=== PATIENT | male | born 1975 | race Two or more races ===

== ENCOUNTER 2017-04-07 18:16 | Emergency (ER) | payer BC, OTHER ==
[2017-04-07 18:34] VITALS: BP 120/81
--- NOTE | 2017-04-07 19:19 | RAD ---
INDICATION: Left knee injury. TECHNIQUE: 4 views of the left knee were obtained. FINDINGS: The bones are in normal alignment. 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 There is a small joint effusion present. There is a small crescent-shaped fracture fragment arising from the inferior pole of the patella. No other fractures are seen. Joint spaces appear maintained. IMPRESSION: SMALL JOINT EFFUSION AND SMALL AVULSION FRACTURE FRAGMENT ARISING FROM THE INFERIOR POLE OF THE PATELLA.
--- NOTE | 2017-04-07 20:42 | UC ---
Knee Pain HPI - HPI Summary HPI Summary: IN [facility] THIS HIKING. HAS JUMPING FROM [place] THIS MORNING. PAIN IN LEFT KNEE, UNABLE TO BEAR WEIGHT WITHOUT PAIN. NO PREVIOUS INJURY - History of Current Complaint Chief Complaint: UCLowerExtremity Stated Complaint: KNEE INJURY Time Seen by Provider: 04/07/17 18:33 Hx Obtained From: Patient Onset/Duration: Sudden Onset, Lasting Hours Severity Initially: Severe Severity Currently: Moderate Pain Intensity: 5 Pain Scale Used: 0-10 Numeric Character: Dull, Aching, Stiffness Aggravating Factor(s): Movement, Weight Bearing, Prolonged Standing, Stairs Alleviating Factor(s): Position, Cold Associated Signs And Symptoms: Positive: Swelling Able to Bear Weight: No - Risk Factors Septic Arthritis Risk Factor: Negative Gout Risk Factor: Negative - Allergies/Home Medications Allergies/Adverse Reactions: Allergies Allergy/AdvReac Type Severity Reaction Status Date / Time No Known Allergies Allergy Verified 04/07/17 18:22 Home Medications: Home Medications Ibuprofen TAB* [Advil TAB*] 2 tab PO TID PRN 04/07/17 [History Confirmed ] PMH/Surg Hx/FS Hx/Imm Hx Previously Healthy: Yes - Surgical History Surgical History: Yes Surgery Procedure, Year, and Place: right knee - MEDIAL MEISCAL TEAR A FEW 2009 - Family History Known Family History: Negative: Other - NO JOINT LAXITY - Social History Occupation: Employed Full-time Lives: With Family Alcohol Use: Rare Substance Use Type: None Smoking Status (MU): Never Smoked Tobacco Review of Systems Constitutional: Negative Skin: Negative Eyes: Negative ENT: Negative Respiratory: Negative Cardiovascular: Negative Gastrointestinal: Negative Genitourinary: Negative Motor: Negative Neurovascular: Negative Musculoskeletal: Arthralgia - LEFT KNEE, Myalgia Neurological: Negative Psychological: Negative Is Patient Immunocompromised?: No All Other Systems Reviewed And Are Negative: Yes Physical Exam Triage Information Reviewed: Yes Appearance: Well-Appearing, Well-Nourished, Pain Distress Vital Signs: Initial Vital Signs Temp 98.8 F 04/07/17 18:23 Pulse 72 04/07/17 18:23 Resp 16 04/07/17 18:23 BP 120/81 04/07/17 18:23 Pulse Ox 100 04/07/17 18:23 Vital Signs Reviewed: Yes Eye Exam: Normal ENT Exam: Normal ENT: Positive: Normal ENT inspection Dental Exam: Normal Neck exam: Normal Neck: Positive: Supple, Nontender Respiratory Exam: Normal Respiratory: Positive: Chest non-tender, Lungs clear, Normal breath sounds, No respiratory distress Cardiovascular Exam: Normal Cardiovascular: Positive: RRR, No Murmur, Pulses Normal Abdominal Exam: Normal Musculoskeletal: Positive: Strength Limited @ - LEFT KNEE, ROM Limited @ - LEFT KNEE, Edema @ - LEFT KNEE Neurological Exam: Normal Psychological Exam: Normal Skin Exam: Normal Knee Pain Course/Dx - Differential Dx/Diagnosis Differential Diagnosis/HQI/PQRI: Fracture (Closed), Internal Derangement Of Knee , Sprain, Strain Provider Diagnoses: CLOSED AVULSION FRACTURE INFERIOR POLE LEFT PATELLA Discharge - Discharge Plan Condition: Stable Disposition: HOME Patient Education Materials: Patellar Fracture (ED), Swollen Knee Joint (ED), Avulsion Fracture (ED) Referrals: Say Melgar MD [Medical Doctor] - Irma Rincon MD [Primary Care Provider] -
== END 2017-04-07 20:10 | disposition home or self-care (01) ==
LOC: UCEAST 18:16
DX: S82.092A Other fracture of left patella, initial encounter for closed fracture (principal); Y93.39 Activity, other involving climbing, rappelling and jumping off; Y92.9 Unspecified place or not applicable
CPT/HCPCS: 99213; G0463